=== PATIENT | male | born 1985 | race Caucasian/White ===

== ENCOUNTER 2018-12-23 13:25 | Emergency (ER) | payer SELFPAY, OTHER ==
[2018-12-23] MEDS: FLUORESCEIN STRIP LEFT EYE (14:47)
[2018-12-23] MEDS: TETRACAINE 0.5% 4 ML OPH LEFT EYE (14:47)
== END 2018-12-23 15:27 | disposition home or self-care (01) ==
LOC: FTE 13:25
DX: T15.01XA Foreign body in cornea, right eye, initial encounter (principal); X58.XXXA Exposure to other specified factors, initial encounter; Y92.9 Unspecified place or not applicable
CPT/HCPCS: 99283